=== PATIENT | male | born 1980 | race African-American/Black ===

== ENCOUNTER 2018-05-19 11:56 | Inpatient (IN) | payer OTHER, SELFPAY ==
--- NOTE | 2018-05-19 13:22 | PDOC.FPRHP ---
- History of Present Illness Chief Complaint: "my toe is getting worse" History of Present Illness: 37 yo M with DM2 presents as transfer from [place] for presumed osteomyelitis. Started as a blister on his fourth left toe 3 weeks ago from wearing steel-toe boots. Became red, mildly tender. Saw his PCP Dr. Aquino who gave him a clindamycin course for 7 days in which the patient completed. Symptoms did not improve, toe nail fell off, blister bursted and pus formed prompting him to come in today. In the [place] ED they started him on Vanc & Zosyn - Allergies/Adverse Reactions Allergies Allergy/AdvReac Type Severity Reaction Status Date / Time No Known Allergies Allergy Verified 05/19/18 15:55 - Home Medications Medication Instructions Recorded Confirmed Type Glimepiride [Amaryl] 4 mg PO QAM-WM 05/19/18 05/19/18 History Losartan [Cozaar] 25 mg PO DAILY 05/19/18 05/19/18 History metFORMIN HCl [Metformin HCl] 1,000 mg PO BID 05/19/18 05/19/18 History - History PMHx: DM2, HTN PSHx: Tonsillectomy FHx: DM2, HTN Social: Denies tobacco, drinks 1-2 drinks weekly, denies drug uses - Review of Systems General: denies: fever/chills, weight/appetite/sleep changes, night sweats Eyes: denies: eye pain, vision changes ENT: denies: nasal congestion, rhinorrhea Respiratory: denies: cough, congestion, shortness of breath Cardiovascular: denies: chest pain, palpitation Gastrointestinal: denies: nausea, vomiting, diarrhea, constipation Skin: reports: rashes. denies: lesions Musculoskeletal: reports: pain (minimal at left foot, fourth toe), tenderness, stiffness, swelling Neurological: denies: numbness, syncope, seizure Psychological: denies: anxiety - Vital signs BP: [143/95] HR: [87] RR: [16] Tmax: [98.5] Pox: [98]% on [RA] Wt: [116] - Physical Exam Constitutional: NAD, awake, alert and oriented HEENT: normocephalic and atraumatic, PERRLA, EOMI, conjunctiva clear, no scleral icterus, good dention Neck: supple, FROM, trachea midline Chest: no-tender to palpation Heart: RRR, normal S1/S2, no murmurs/rubs/gallops, no edema Lungs: CTAB, no respiratory distress, good air movement, no wheezing Abdomen: soft, non-tender, bowel sounds present, no masses/distention Musculoskeletal: normal structure, normal tone, ROM grossly normal -Musculoskeletal: left fourth toe: necrosis of tissues, purulence, erythema involving part of left 3rd toe. Edema involving entirety of left foot up to ankle. Pulses palpable. Able to move Neurological: no focal deficit, normal sensation -Neurological: feet: plantar sensation in tact to feet bilaterally Heme/Lymphatic: no unusual bruising or bleeding, no purpura Psychiatric: normal mood and affect, good judgment and insight FMR H&P: Results - Radiology Interpretation Other Status: report reviewed by me Additional comment: foot xray: likely osteomyelitis of proximal 4th digit of left foot FMR H&P: A/P - Problem List (1) Osteomyelitis of toe of left foot Current Visit: Yes Status: Acute Code(s): M86.9 - OSTEOMYELITIS, UNSPECIFIED (2) Diabetes type 2, no ocular involvement Current Visit: Yes Status: Acute Code(s): E11.9 - TYPE 2 DIABETES MELLITUS WITHOUT COMPLICATIONS (3) Hypertension Current Visit: Yes Status: Acute Code(s): I10 - ESSENTIAL (PRIMARY) HYPERTENSION - Plan 37 yo M with DM2 here with presumed osteomyelitis of the proximal phalanx of the 4th toe Presumed osteomyelitis of left toe -Xray shows osseous destruction of proximal phalanx of 4th toe -Vital signs stable, Lactic acid wnl, no signs of systemic infections at this time -Continue Vanc & Zosyn, pending blood & wound cultures -Toradol PRN for pain control -Podiatry has been consulted from ED, plans for surgery tonight DM2 -continue home meds -will ask about recent a1c, can consider obtaining more recent one -mild SS to cover HTN -continue home meds dvt ppx: none, will resume after surgery Discussed with Dr. Sanchez FMR H&P: Upper Level - Pertinent history Very pleasant 37 year old AA male presents as transfer from outside ED with concern for osteomyelitis of 4th toe on left. Patient presented to ED after noticing worsening necrosis and purulent drainage from left 4th toe. Patient states it started as a blister. He wears steel toed boots for work. The blister got worse over the course of 2 weeks. He saw his PCP a week ago and completed a course of antibiotics. Patient states that it initially seemed to get better, but it started to slough and drain purulent discharge. It has turned black. patient denies any pain, but decided to come in for evaluation as the antibiotics did not help. He has also noticed redness to the dorsal aspect of the left foot. He has not spread past the ankle. Patient denies fever, chills, N /V. Patient was transferred over from [place] ED and started on Vanc and Zosyn. Podiatry was consulted from ED. - Pertinent findings General: Patient is alert and oriented x3. No acute distress. HEENT: Moist mucous membranes Cardio: RRR. No murmurs Resp: Lungs clear to auscultation. No acute respiratory distress. MARQUITA: Full ROM throughout. Pedal pulses intact. GI: Soft, non-tender, bowel sounds present in all 4 quadrants Skin: Warmth and erythema extending from dorsal aspect of toes to dorsal aspect of ankle on left. Necrotic left distal fourth toe with purulent drainage proximally. - Plan Date/Time: 05/19/18 1319 I, Shae Aragon, have evaluated this patient and agree with findings/plan as outlined by internet marketing assistant resident. Pertinent changes/additions are listed here. Osteomyelitis of left 4th toe - Left foot xray xray: osseous destruction of distal end of proximal phalanx of fourth toe. Osteomyelitis is presumed given clinical presentation. - ESR not obtained as podiatry was consulted in ED and they have plans for surgery tomorrow - Podiatry consulted in ED. Plan for surgery at noon tomorrow. - NPO at midnight; consistent carb diet in meantime. - Vanc and zosyn (05/19) - LR once NPO - No systemic signs of infection - Toradol PRN pain control HTN - Continue home medications DM type II - Continue home medications - Mild SSI - HgA1c pending - ACHS accuchecks - CC diet DVT ppx: Ambulation Code status: Full Dispo: Admit to hospital on surgical or medical floor. Plan for surgery tomorrow. Attending Addendum - Attending Addendum Date/Time: 05/19/18 7391 I personally evaluated the patient and discussed the management with Dr. Umu Walters/ Margo. I agree with the History, Examination, Assessment and Plan documented above with any addition or exceptions noted below. Patient here with worsening L toe infection. Imaging c/w possible osteomyelitis of the digit, and there is evidence for both wet and dry gangrene when looking at the digit. Patient will be admitted for gangrene and possible osteomyelitis, placed on IV abx. Will be made NPO. Podiatry has been consulted from the ED and will see patient for further recommendations.
[2018-05-19] MEDS ORDERED: Acetaminophen 325 MG TAB PO PRN ×2 (14:08→15:38)
[2018-05-19] MEDS ORDERED: Sodium Chloride 0.9% 1,000 ML IV SCH (15:38)
[2018-05-19] MEDS ORDERED: Ondansetron PF 4 MG/2 ML Vial IVP PRN (15:38)
[2018-05-19] MEDS ORDERED: Ondansetron ODT 4 MG TAB SL PRN (15:38)
[2018-05-19] MEDS ORDERED: Morphine 4 MG/ML VIAL SLOW IVP PRN (15:39)
[2018-05-19] MEDS ORDERED: Lactated Ringer's 1,000 ML IV SCH (15:41)
[2018-05-19] MEDS ORDERED: Dextrose 50% Abboject 50 ML SYRINGE SLOW IVP PRN (15:41)
[2018-05-19] MEDS ORDERED: Dextrose 5% in Water 1,000 ML IV PRN (15:41)
[2018-05-19 15:52] VITALS: BMI 31.9
[2018-05-19] MEDS: Piperacillin/Tazobactam 3.375 GM in Sodium Chloride 0.9% 100 ML IVPB SCH ×2 (16:30→21:05)
[2018-05-19] MEDS: Vancomycin HCl 1.75 GM in Sodium Chloride 0.9% 500 ML IVPB SCH (18:16)
--- NOTE | 2018-05-19 20:34 | RAD ---
RIGHT FOOT TWO VIEWS: 05/19/18 COMPARISON: None. HISTORY: Wounds of the right foot. FINDINGS: There is cortical irregularity involving the mid shaft of the third proximal phalanx suggesting an ag e indeterminate, likely subacute/chronic, fracture. Soft tissue swelling is seen in the region of the fourth toe. Punctate foci of subcutaneous gas suspected on the frontal examination in this region. N o obvious bone destruction. IMPRESSION: Findings suggesting soft tissue swelling of fourth digit with possible punctate subcutaneous gas. No osseous destruction. MRI of the foot could best assess for underlying osteomyelitis. Question age ind eterminate, likely subacute/chronic fracture of third proximal phalanx. POS: [facility]
[2018-05-20] MEDS: Vancomycin HCl 1.75 GM in Sodium Chloride 0.9% 500 ML IVPB SCH ×3 (00:34→17:19)
[2018-05-20 04:40] LABS: #Basophils 0.1 thou/uL (0.0-0.2); #Eosinphils 0.4 thou/uL (0.0-0.7); #Lymphocytes 2.1 thou/uL (1.20-3.40); #Monocytes 0.7 thou/uL (0.11-0.59); #Neutrophils 5.8 thou/uL (1.40-6.50); %Basophils 0.8 % (0.0-1.0); %Eosinophils 4.1 % (0.0-10.0); %Lymphocytes 23.5 % (21.0-51.0); %Monocytes 7.3 % (0.0-10.0); %Neutrophils 64.4 % (42.0-75.0); Hemoglobin 11.8 g/dL (14.0-18.0); Mean Corpuscular HGB CONC 34.8 g/dL (32.0-36.0); Mean Corpuscular Hemoglobin 30.2 pg (27.0-31.0); Mean Corpuscular Volume 86.9 fL (78.0-98.0); Mean Platelet Volume 6.6 fL (7.4-10.4); Platelet Count 512 thou/uL (130-400); Red Blood Cell (RBC) Count 3.91 mill/uL (4.70-6.10)
[2018-05-20 04:56] LABS: Anion Gap 10 mmol/L (10-20); BUN (Urea Nitrogen) 9 mg/dL (8.9-20.6); Calc. Creatinine Clearance 200 mL/min (70-130); Calcium 8.2 mg/dL (7.8-10.44); Carbon Dioxide 27 mmol/L (22-29); Chloride 104 mmol/L (98-107); Estimated GFR-MDRD Greater than 90; Glucose 142 mg/dL (70-105); Potassium 3.6 mmol/L (3.5-5.1); Sodium 137 mmol/L (136-145)
--- NOTE | 2018-05-20 05:33 | PDOC.FM ---
- Subjective Subjective: No acute events overnight. Pt reports feeling well, no pain at left foot. - Objective Vital Signs & Weight: Vital Signs (12 hours) Temp Pulse Resp BP Pulse Ox 05/20/18 05:03 98.4 F 79 18 132/84 97 05/20/18 00:00 98.5 F 71 18 142/85 H 94 L 05/19/18 20:00 96 05/19/18 19:56 97.9 F 78 16 131/80 96 Weight Weight 116 kg I&O: 05/18/18 05/19/18 05/20/18 06:59 06:59 06:59 Intake Total 340 Balance 340 Result Diagrams: 05/20/18 03:50 05/20/18 03:50 Phys Exam - Physical Examination Constitutional: NAD HEENT: moist MMs, sclera anicteric Respiratory: no wheezing, no rales, clear to auscultation bilateral Cardiovascular: RRR, no significant murmur left fourth toe unchanged from yesterday-black necrotic skin, edema of left foot, dorsalis pedis pulse palpable 1+ Neurological: non-focal, moves all 4 limbs Psychiatric: normal affect, A&O x 3 Dx/Plan (1) Osteomyelitis of toe of left foot Code(s): M86.9 - OSTEOMYELITIS, UNSPECIFIED Status: Acute (2) Diabetes type 2, no ocular involvement Code(s): E11.9 - TYPE 2 DIABETES MELLITUS WITHOUT COMPLICATIONS Status: Acute (3) Hypertension Code(s): I10 - ESSENTIAL (PRIMARY) HYPERTENSION Status: Acute - Plan Plan: 37 yo M with DM2 here with presumed osteomyelitis of the proximal phalanx of the 4th toe Presumed osteomyelitis of left toe -Xray shows osseous destruction of proximal phalanx of 4th toe -Vital signs stable, Lactic acid wnl, no signs of systemic infections at this time -Continue Vanc & Zosyn, pending blood & wound cultures -Toradol PRN for pain control -Surgery at noon today, NPO as of midnight DM2 -resume glimepiride -hold metformin in case contrast MRI -pending a1c -mild SS to cover -will start on ASA after surgery -will start on statin HTN -continue home meds dvt ppx: none, will resume after surgery dispo: Pending podiatry recs & wound culture results, can possibly d/c after surgery Discussed with Dr. Macario
[2018-05-20] MEDS: Piperacillin/Tazobactam 3.375 GM in Sodium Chloride 0.9% 100 ML IVPB SCH ×4 (05:45→20:40)
[2018-05-20] MEDS: Losartan 25 MG TAB PO SCH (08:22)
[2018-05-20] MEDS ORDERED: Lidocaine 1% PF 5 ML VIAL ONE (09:38)
[2018-05-20] MEDS ORDERED: Ondansetron PF 4 MG/2 ML Vial ONE (09:38)
[2018-05-20] MEDS ORDERED: PROPOFOL 200 MG/20 ML VIAL ONE (09:38)
[2018-05-20] MEDS ORDERED: Metoclopramide HCl 10 MG/2 ML VIAL ONE (09:38)
[2018-05-20] MEDS ORDERED: Ketorolac Tromethamine 30 MG/ML VIAL ONE (09:38)
[2018-05-20] MEDS ORDERED: Fentanyl 100 MCG/2 ML VIAL ONE (11:46)
--- NOTE | 2018-05-20 11:50 | CON ---
DATE OF CONSULTATION: 05/20/2018 SUBJECTIVE: I was consulted to see the patient when he was in the emergency room, now admitted to room 4437. The patient is resting comfortably. The patient has been on IV antibiotics. The patient states for several weeks, he has had a wound on the left fourth digit. He has received different antibiotics and has been putting iodine solution on the wound as instructed. Increased redness and pain brought him to the emergency room. OBJECTIVE: The patient has erythema on the dorsum of the foot, which has been marked out with a pen. The patient has some swelling of the left foot. The patient has good palpable pulses 2/4 bilaterally dorsalis pedis and posterior tib. The patient has reduced sensation to light touch in bilateral plantar feet. Examination shows dry gangrene in the distal left fourth digit with some early signs of wet gangrene. X-ray examination shows there to be osteomyelitis changes and destruction at the head of the proximal phalanx. Also with examination, the patient has a pre-ulcerative lesion on the plantar aspect of the first metatarsal head and on the left fifth digit proximal interphalangeal joint. Also, noted was a dry ulcer on the dorsal aspect of the right fourth digit. This does not appear infected, but patient reports this to be a longstanding wound. The patient had no white counts on admission. ASSESSMENT AND PLAN: 1. I discussed with the patient his current situation with a bone infection. He is scheduled tomorrow for amputation of left fourth digit. I also verbally consented him to debride the pre-ulcerative lesions. I ordered x-rays of the right foot to rule out osteomyelitis of the right fourth digit. If positive for osteomyelitis, we will discuss with the patient presurgery. If negative, the patient will be instructed on wound care at home. 2. The patient was instructed that he will not be working until this wound has healed. He is to get me the appropriate paperwork. 3. After surgery, the patient will be readmitted for wound care and to evaluate the culture and sensitivity taken in the operating room. Job ID: [id number]
[2018-05-20] MEDS ORDERED: Bupivacaine PF 0.5% 30 ML VIAL ONE ×2 (11:52→12:04)
[2018-05-20] MEDS ORDERED: Neomycin-Polymyxin 1 ML AMP ONE (11:52)
[2018-05-20] MEDS ORDERED: Morphine Sulfate 2 MG/ML SYRINGE SLOW IVP PRN (13:12)
[2018-05-20] MEDS ORDERED: Promethazine HCl 25 MG/ML VIAL SLOW IVP PRN (13:12)
[2018-05-20] MEDS ORDERED: Promethazine HCl 25 MG/ML VIAL IM PRN (13:12)
[2018-05-20] MEDS ORDERED: Ondansetron HCl/PF 4 MG/2 ML Vial IVP PRN (13:12)
[2018-05-20] MEDS ORDERED: PACU-Morphine 4MG/ML VIAL SLOW IVP PRN (13:12)
[2018-05-20] MEDS ORDERED: Meperidine HCl/PF 25 MG/ML VIAL SLOW IVP PRN (13:12)
[2018-05-20] MEDS ORDERED: HYDROmorphone 2 MG/ML VIAL SLOW IVP PRN (13:12)
[2018-05-20] MEDS: Ketorolac Tromethamine 30 MG/ML VIAL IVP PRN (16:21)
[2018-05-20] MEDS: HumaLOG 300 UNITS/3 ML VIAL SC PRN (17:26)
[2018-05-20] MEDS ORDERED: Atorvastatin Calcium 40 MG TAB PO SCH (21:00)
[2018-05-20] MEDS ORDERED: Simvastatin 20 MG TAB PO SCH (21:00)
[2018-05-21] MEDS: Vancomycin HCl 1.75 GM in Sodium Chloride 0.9% 500 ML IVPB SCH ×2 (00:08→10:03)
[2018-05-21] MEDS: Ketorolac Tromethamine 30 MG/ML VIAL IVP PRN ×2 (00:11→11:54)
[2018-05-21] MEDS: Piperacillin/Tazobactam 3.375 GM in Sodium Chloride 0.9% 100 ML IVPB SCH ×3 (05:31→15:49)
[2018-05-21] MEDS: HumaLOG 300 UNITS/3 ML VIAL SC PRN (05:33)
--- NOTE | 2018-05-21 05:52 | PDOC.FM ---
- Subjective Subjective: S/P surgery day 1. No complaints-denies pain, fever. Eating well. - Objective Vital Signs & Weight: Vital Signs (12 hours) Temp Pulse Resp BP Pulse Ox 05/21/18 04:00 98.4 F 78 16 128/81 97 05/21/18 00:00 98.8 F 86 16 135/74 95 Weight Weight 116 kg I&O: 05/19/18 05/20/18 05/21/18 06:59 06:59 06:59 Intake Total 1967 1133 Balance 1967 1133 Result Diagrams: 05/21/18 08:03 05/21/18 08:03 Phys Exam - Physical Examination Constitutional: NAD HEENT: PERRLA, moist MMs, sclera anicteric Neck: full ROM Gastrointestinal: soft, non-tender Musculoskeletal: no edema, pulses present left foot bandaged wrapped in foot immobilizer. Neurological: non-focal, moves all 4 limbs Psychiatric: normal affect, A&O x 3 Skin: no rash, cap refill <2 seconds Dx/Plan (1) Osteomyelitis of toe of left foot Code(s): M86.9 - OSTEOMYELITIS, UNSPECIFIED Status: Acute (2) Diabetes type 2, no ocular involvement Code(s): E11.9 - TYPE 2 DIABETES MELLITUS WITHOUT COMPLICATIONS Status: Acute (3) Hypertension Code(s): I10 - ESSENTIAL (PRIMARY) HYPERTENSION Status: Acute - Plan Plan: 37 yo M with DM2 here with presumed osteomyelitis of the proximal phalanx of the 4th toe Osteomyelitis of left digit -s/p operative procedure with Dr. Palumbo -Wound culture (05/19) positive for pseudomonas & beta hemolytic strep -No systemic signs of infection, continuing vanc & zosyn, Dr. Hicks consulted, appreciate recs -Toradol PRN for pain control, tylenol PRN fever -Wound care on board, outpt appt scheduled for 05/28 DM2, uncontrolled -A1c 8 -Glucose at goal -Statin, ASA, metformin, glimepride -mild SS to cover HTN -stable -continue home meds dvt ppx: lovenox dispo: Once transitioned to oral abx, and wound care sees patient. Can potentially d/c Discussed with Dr. Macario
[2018-05-21] MEDS ORDERED: Glimepiride 4 MG TAB PO SCH (08:00)
[2018-05-21 08:44] LABS: #Basophils 0.1 thou/uL (0.0-0.2); #Eosinphils 0.4 thou/uL (0.0-0.7); #Lymphocytes 1.7 thou/uL (1.20-3.40); #Monocytes 0.5 thou/uL (0.11-0.59); #Neutrophils 5.8 thou/uL (1.40-6.50); %Basophils 0.7 % (0.0-1.0); %Eosinophils 4.4 % (0.0-10.0); %Lymphocytes 20.2 % (21.0-51.0); %Neutrophils 68.7 % (42.0-75.0); Hemoglobin 11.6 g/dL (14.0-18.0); Mean Corpuscular HGB CONC 34.9 g/dL (32.0-36.0); Mean Corpuscular Hemoglobin 30.3 pg (27.0-31.0); Mean Corpuscular Volume 86.7 fL (78.0-98.0); Mean Platelet Volume 6.4 fL (7.4-10.4); Platelet Count 455 thou/uL (130-400); RBC Distribution Width 10.8 % (11.5-14.5); Red Blood Cell (RBC) Count 3.85 mill/uL (4.70-6.10); White Blood Cell (WBC) Count 8.5 thou/uL (4.8-10.8)
[2018-05-21] MEDS: Losartan 25 MG TAB PO SCH (08:51)
[2018-05-21] MEDS: metFORMIN 500 MG TAB PO SCH ×2 (08:51→17:35)
--- NOTE | 2018-05-21 08:58 | PRG ---
DATE OF SERVICE: 05/20/2018 ADDENDUM: This is an addendum to the note of Dr. Judy Walters. Mr. Grissom is a very pleasant 37-year-old black male patient with approximately 20-year history of type 2 diabetes. He presented with a diabetic foot infection and possible osteomyelitis. This is occurring on his fourth left toe and began with the blister 3 weeks ago. He presented to a local ER and was subsequently transferred here for higher level of care. He has already been seen in consultation by the Podiatry Service and has been taken for amputation. We will continue to follow with the Surgical Service, manage antibiotics and manage his type 2 diabetes. Job ID: [id number]
[2018-05-21 08:59] LABS: Vancomycin, Trough 19.6 ug/mL
[2018-05-21] MEDS ORDERED: Enoxaparin Sodium 40 MG/0.4 ML SYRINGE SC SCH (09:00)
[2018-05-21] MEDS ORDERED: Aspirin 81 mg Enteric Coated Tablet PO SCH (09:00)
[2018-05-21 09:12] LABS: Anion Gap 10 mmol/L (10-20); BUN (Urea Nitrogen) 11 mg/dL (8.9-20.6); Calc. Creatinine Clearance 195 mL/min (70-130); Calcium 8.5 mg/dL (7.8-10.44); Carbon Dioxide 27 mmol/L (22-29); Chloride 105 mmol/L (98-107); Estimated GFR-MDRD Greater than 90; Glucose 140 mg/dL (70-105); Potassium 3.7 mmol/L (3.5-5.1); Sodium 138 mmol/L (136-145)
--- NOTE | 2018-05-21 10:50 | OP ---
DATE OF PROCEDURE: 05/20/2018 PREOPERATIVE DIAGNOSIS: Osteomyelitis, 4th digit proximal phalanx. POSTOPERATIVE DIAGNOSIS: Osteomyelitis, 4th digit proximal phalanx. PROCEDURE PERFORMED: Amputation, left 4th digit and distal 1st metatarsal. ANESTHESIA: General with a field block, totally 8 mL of 0.5% plain Marcaine. ESTIMATED BLOOD LOSS: 100 mL. DESCRIPTION OF PROCEDURE: The patient was taken to the operating room, placed on the operating room table in the supine position. After general anesthesia was achieved, an 8 mL of 0.5% plain Marcaine was injected in a field block. The left lower extremity was then scrubbed and draped in the usual surgical manner. A well-padded pneumatic ankle tourniquet was placed above the medial and lateral malleolus prior to draping. Attention was directed to the 4th digit, the digit was clamped with atraumatic towel clamp and manipulated. A fish-mouth incision was made at the base of the proximal phalanx. At this time, it was noted that the ulcer tracked proximally to the metatarsophalangeal joint. The digit was incised at the proximal phalanx with power saw and re-evaluated. The necrotic type tissue was present at the metatarsophalangeal joint, therefore the distal metatarsal head was transected with the power saw and removed. Using a rongeur, all necrotic tissues were evaluated and removed. The extensor tendon and flexor tendon were clamped and retracted distally and sharply transected with a clean blade proximally. The digit was passed off to the back table. After the procedure under sterile technique, bone cultures were taken. Copious lavage of irrigant to the wound was performed. Partial closure with 3-0 nylon suture was performed and the distal wound was packed with 1/4 inch iodoform dressing. Sterile fluff dressing applied. The patient tolerated the anesthesia and procedure well. The patient was readmitted to the hospital for IV antibiotic therapy and consult from Dr. Hicks for possible outpatient antibiotic therapy. Hand Stapler to figure out outpatient wound care. The patient will be re-examined tomorrow in-house. Job ID: [id number]
[2018-05-21 12:10] VITALS: TEMP 98.4
--- NOTE | 2018-05-21 13:33 | PRG ---
DATE OF SERVICE: 05/21/2018 ADDENDUM: To the note of Dr. Judy Walters. Mr. Grissom had surgery yesterday, and this morning, he is sitting in bed, resting comfortably. He is in no acute distress. We are continuing to follow and manage his type 2 diabetes and attempting to keep his blood glucose level between 140 and 180. We will continue to follow with the Podiatry Surgery service. Job ID: [id number]
[2018-05-21 16:16] VITALS: BP 126/72
--- NOTE | 2018-05-21 22:26 | CON ---
DATE OF CONSULTATION: 05/21/2018 REASON FOR CONSULTATION: Osteomyelitis of right 4th toe. HISTORY OF PRESENT ILLNESS: A 37-year-old with history of type 2 diabetes and neuropathy as well as hypertension, who developed a blister in the 4th toe after wearing steel toe boots and was treated in the outpatient setting with clindamycin with persistence of symptoms. The patient was admitted and had an x-ray that did not show any osteolysis. The patient ended up with an amputation of the 4th toe , including the distal 4th metatarsal bone. There was necrotic tissue at the metatarsophalangeal joint and the pathology is pending at this time. The patient denies any headaches, visual symptoms, sore throat, odynophagia, or dysphagia. No vascular symptoms. No abdominal pain. Voiding without any difficulty. No diarrhea. No bleeding. Minimal pain in the affected extremity. PAST MEDICAL HISTORY: Type 2 diabetes, hypertension, neuropathy. ALLERGIES: NONE. SOCIAL HISTORY: Never smoker, drinks occasionally. FAMILY HISTORY: Type 2 diabetes and hypertension. CURRENT MEDICATIONS: 1. Aspirin. 2. Lipitor. 3. Amaryl. 4. Zosyn. 5. Vancomycin. PHYSICAL EXAMINATION: VITAL SIGNS: Temperature max 98.5. Other vital signs are not remarkable. SKIN: The original findings with necrosis over the distal end of the 4th digit with gangrene and swelling over the remainder aspect of the 4th toe. No lymphadenopathy. HEENT: Noncontributory. NECK: Supple. LUNGS: Symmetrical with clear breath sounds. HEART: S1, S2 regular rate. No S3 or S4. ABDOMEN: Soft, nondistended, nontender. No ascites. No bladder distention. No other joint inflammatory process. Popliteal pulses 1+. DP pulses 1+. ASSESSMENT: Type 2 diabetes with gangrene over the distal aspect of left 4th toe, status post amputation of the toe and the distal ray. DISCUSSION: The patient appears to have adequate vascular supply and waiting on pathology report to make sure that the margins are clear. The organisms include Pseudomonas aeruginosa, which has a broad susceptibility profile and group B strep. Conceivably, he could be discharged on oral ciprofloxacin plus Augmentin or amoxicillin, and I would treat him for 3 to 4 weeks. If the margins are compromised, then I would extend therapy to 6 weeks and may be treated him with IV antimicrobial therapy if that was the case. Job ID: [id number] [facility]
--- NOTE | 2018-05-21 23:48 | PRG ---
DATE OF SERVICE: 05/21/2018 SUBJECTIVE FINDINGS: On postop day#1, the patient is in bed resting comfortably. The patient has no complaints. The patient is growing out a gram-negative michelle and Staph aureus. The patient has reduced swelling of the foot. I have discussed with Dr. Walters his prognosis. When he gets trained on bandage changes, he can be discharged to home. I have discussed with Dr. Hicks outpatient antibiotics and he will be put on Cipro and Augmentin. He will follow up with me in 1 week in the office and he is seeing Wound Care on . Job ID: [id number]
--- NOTE | 2018-05-22 17:42 | DIS ---
DATE OF ADMISSION: 05/19/2018 DATE OF DISCHARGE: 05/21/2018 ADMITTING ATTENDING: Tanya Hernandez MD. DISCHARGE ATTENDING: Rajinder Chávez MD CONSULTS: 1. Podiatry, Dr. Palumbo. 2. Dr. Hicks. PRIMARY DIAGNOSIS: Left fourth digit osteomyelitis. SECONDARY DIAGNOSES: 1. Type 2 diabetes uncontrolled. 2. Hypertension. DISCHARGE MEDICATIONS: DICTATION ENDS HERE Job ID: [id number]
--- NOTE | 2018-05-22 17:51 | DIS ---
DATE OF ADMISSION: 05/19/2018 DATE OF DISCHARGE: 05/21/2018 ADMITTING ATTENDING: Tanya Hernandez MD DISCHARGE ATTENDING: Rajinder Chávez MD RESIDENT: Judy Walters MD, PGY-1 CONSULTS: 1. Podiatry, Dr. Palumbo, on 05/19. 2. Dr. Hicks, on 05/20. 3. Wound Care on 05/20/2018. PRIMARY DIAGNOSIS: Left 4th toe osteomyelitis, status post debridement and amputation. SECONDARY DIAGNOSES: 1. Uncontrolled diabetes mellitus 2. 2. Hypertension. 3. HLD DISCHARGE MEDICATIONS: 1. Aspirin 81 mg p.o. daily. 2. Atorvastatin 40 mg p.o. nightly. 3. Metformin 1000 mg p.o. b.i.d. 4. Glimepiride 4 mg p.o. q.a.m. with meal. 5. Losartan 25 mg p.o. daily. 6. Augmentin 875 mg p.o. q.12 hours. 7. Ciprofloxacin 500 mg p.o. b.i.d. DISCONTINUED MEDICATIONS: None. PROCEDURES: Amputation of left 4th digit and distal first metatarsal by Dr. Palumbo. HISTORY OF PRESENT ILLNESS AND HOSPITAL COURSE: Mr. Grissom is a 37-year-old type 2 diabetic, who presented as a transfer for presumed osteomyelitis as evidenced per foot x-ray. The patient was admitted and started on empiric antibiotics of Vanc and Zosyn. Dr. Palumbo was consulted and the patient underwent amputation of left 4th digit and first metatarsal. Hospital course was uncomplicated and the patient recovered well with work up for systemic infection involvement all negative. Wound cultures of the left 4th toe fluid were positive for Pseudomonas and Strep agalactiae. With Dr. Hicks ' recommendations patient was transitioned to po abx. Despite the patient's young age he had been diabetic for 15+ years diagnosed at the age of 13. Contributing factors to developing osteomyelitis was from trauma from wearing steel toe boots and diabetic peripheral neuropathy. In addition patient's A1c was 8. Uncontrolled DM2 likely contributed to poor wound healing. No further workup for PAD was conducted as the patient did not exhibit any clinical signs for this as discussed between Dr. Palumbo and our team. Also discussed with the patient why we started him on a statin and aspirin due to his uncontrolled diabetes. He was instructed to follow up with his PCP for further discussion about this since he was taken off of them. Overall, the patient recovered well and expressed he is all ready to go home upon discharge. DISPOSITION: Stable. DISCHARGE INSTRUCTIONS: 1. Location: Home. 2. Diet: Renal diet, heart healthy. 3. Activity: Ad-krys. 4. Followup: Please follow up with PCP Dr. Williamson within the week. Please also follow up with Wound Care for outpatient appointment on 05/28/2018. Job ID: [id number] [facility]
== END 2018-05-21 18:36 | disposition home or self-care (01) | DRG 256 ==
LOC: ERS 11:56 → ERHOLD 13:46 → T4-B 14:52
PROVIDERS: ADMIT Family Medicine; ATTEND Family Medicine
PROC: 0Y6Q0Z3 Detachment at Left 1st Toe, Low, Open Approach (ICD-10-PCS; principal; 2018-05-20)
PROC: 0Y6W0Z1 Detachment at Left 4th Toe, High, Open Approach (ICD-10-PCS; 2018-05-20)
DX: E13.52 Other specified diabetes mellitus with diabetic peripheral angiopathy with gangrene (principal); I96 Gangrene, not elsewhere classified; M86.8X7 Other osteomyelitis, ankle and foot; I10 Essential (primary) hypertension; E11.65 Type 2 diabetes mellitus with hyperglycemia; E78.00 Pure hypercholesterolemia, unspecified; E13.42 Other specified diabetes mellitus with diabetic polyneuropathy
CPT/HCPCS: 36415; 36416; 80048; 80202; 83036; 85025; 87070; 87076; 87077; 87186; 87205; 88305; 88311; 99285; J1650; J1885; J2001; J2405; J2543; J2704; J2765; J3010; J3370; J7050; S0020

== ENCOUNTER 2018-05-28 07:57 | Outpatient (CLI) | payer SELFPAY ==
--- NOTE | 2018-05-28 13:08 | HP ---
HISTORY OF PRESENT ILLNESS: Mr. Thompson Grissom is a very pleasant 38-year-old gentleman, who presents [facility] for evaluation of a wound of the left foot subsequent to amputation of the left fourth digit and distal fourth metatarsal on 05/20/[address] Palumbo. Upon discharge from [facility], the patient was referred to the Wound Center for further evaluation and treatment. The patient states he was discharged to home on Augmentin and ciprofloxacin. PAST MEDICAL HISTORY: 1. Hypertension. 2. Diabetes mellitus. PAST SURGICAL HISTORY: 1. Tonsillectomy. 2. Amputation of left fourth digit and distal fourth metatarsal on 05/20/[address] Palumbo. MEDICATIONS: 1. Aspirin 81 mg. 2. Metformin. 3. Amaryl. 4. Cozaar. 5. Augmentin. 6. Ciprofloxacin. ALLERGIES: NO KNOWN DIAGNOSED ALLERGIES. SOCIAL HISTORY: Social history is significant for tobacco use of one pack of cigarettes per day for five years. The patient states that he stopped smoking years ago. The patient admits to the social consumption of alcohol. FAMILY HISTORY: Family history is significant for diabetes mellitus. The patient states that his mother and father were both diagnosed with diabetes mellitus. Family history is also significant for coronary artery disease. The patient states that his mother and father were both diagnosed with coronary artery disease. PHYSICAL EXAMINATION: VITAL SIGNS: Temperature 98.2, pulse 81, respirations 18, and blood pressure 159/99. GENERAL: A 38-year-old gentleman, sitting on chair in examination room, in no acute distress. HEENT: Normocephalic and atraumatic. NECK: No nuchal rigidity. CHEST: Clear to auscultation. CV: Regular rate and rhythm. ABDOMEN: Soft. EXTREMITIES: A wound of the left foot is present subsequent to amputation of the left fourth digit and distal fourth metatarsal. The dimensions of the wound are approximately 1.9 x 1.2 cm. Granulation tissue is present within the wound margins. No purulent drainage is associated with the wound. No erythema of the skin surrounding the wound is present. No maceration of the skin of the periwound is noted. A dorsalis pedis pulse is palpable on the left. No significant edema of the left foot is present on exam today. The depth of the wound is approximately 2.3 cm. NEUROLOGIC: Grossly nonfocal. ASSESSMENT AND PLAN: 1. Left foot wound subsequent to amputation of left fourth digit and distal fourth metatarsal. Dressing changes of one-quarter inch gauze packing will be continued as per Dr. Palumbo. The patient states that he will be seen by Dr. Palumbo in one week. I will see Mr. Grissom again in two weeks. The patient has been reminded to continue Augmentin and ciprofloxacin as previously prescribed. 2. Hypertension. 3. Diabetes mellitus. Accu-Cheks will be obtained at the time of the patient's clinic visits. The patient has been told that for optimal wound healing, his blood glucoses should remain below 150. Job ID: [id number]
== END 2018-05-28 07:58 | disposition home or self-care (01) ==
LOC: WCC 07:57
PROVIDERS: ATTEND Family Medicine
DX: T81.89XD Other complications of procedures, not elsewhere classified, subsequent encounter (principal); I10 Essential (primary) hypertension; E11.9 Type 2 diabetes mellitus without complications

== ENCOUNTER 2018-06-11 07:57 | Outpatient (CLI) | payer OTHER, SELFPAY ==
--- NOTE | 2018-06-11 10:16 | PRG ---
DATE OF SERVICE: 06/11/2018 HISTORY: Mr. Thompson Grissom is a very pleasant 38-year-old gentleman, who presents to the [facility] for evaluation of a wound of the left foot subsequent to amputation of the left fourth digit and distal fourth metatarsal on 05/20/[address] Palumbo. Upon discharge from [facility], the patient was referred to the Wound Center for further evaluation and treatment. The patient previously stated he was discharged to home on Augmentin and ciprofloxacin. Mr. Grissom has no complaints today. He denies any fever or chills. PHYSICAL EXAMINATION: VITAL SIGNS: Temperature 98.2, pulse 94, respirations 16, blood pressure 161/95. Accu-Chek 202. EXTREMITIES: A wound of the left foot is present subsequent to amputation of the left fourth digit and distal fourth metatarsal. The dimensions of the wound are approximately 0.5 x 0.5 cm. The depth of the wound is approximately 2.8 cm. Granulation tissue is present within the wound margins. No purulent drainage is associated with the wound. No erythema of the skin surrounding the wound is present. No maceration of the skin of the periwound is noted. A dorsalis pedis pulse is palpable on the left. No significant edema of the left foot is present on exam today. ASSESSMENT AND PLAN: 1. Left foot wound subsequent to amputation of left fourth digit and distal fourth metatarsal. Dressing changes of 1/4 inch gauze packing will be continued as per Dr. Palumbo. The patient states that he will be seen by Dr. Palumbo in one week. I will see Mr. Grissom again in 3 weeks. 2. Hypertension. 3. Diabetes mellitus. The patient's Accu-Chek in clinic today is 202. The patient has been reminded that for optimal wound healing, his blood glucoses should remain below 150. Job ID: [id number]
[2018-06-11] MEDS ORDERED: Sodium Chloride 0.9% 15 ML NEB ONE (15:00)
== END 2018-06-11 07:58 | disposition home or self-care (01) ==
LOC: WCC 07:57
PROVIDERS: ATTEND Family Medicine
DX: E11.621 Type 2 diabetes mellitus with foot ulcer (principal); L97.529 Non-pressure chronic ulcer of other part of left foot with unspecified severity; I10 Essential (primary) hypertension; Z89.422 Acquired absence of other left toe(s)
CPT/HCPCS: 36416; 97602; A4218

== ENCOUNTER 2024-06-08 09:56 | Day surgery (SDC) | payer OTHER ==
[2024-06-07 14:00] VITALS: BMI 33.3
[~2024-06-08 09:56] MED LIST: EPINEPHrine 0.3 MG in Ophthalmic Irrigation Solution 500 ML IRR SCH
[2024-06-08] MEDS ORDERED: Cyclopentolate 1% Opth Drop 2 ML BOT ONE (10:35)
[2024-06-08] MEDS ORDERED: PHENYLephrine 2.5% Ophth Soln 15 ml Bottle ONE (10:35)
[2024-06-08] MEDS ORDERED: Midazolam HCl 2 mg/2 ml Vial ONE (11:02)
[2024-06-08] MEDS ORDERED: fentaNYL 50 mcg/mL 1 mL Vial ONE (11:02)
[2024-06-08] MEDS ORDERED: PROPOFOL 20 ML ONE (11:02)
[2024-06-08] MEDS ORDERED: Bupivacaine 0.75% 10 ML VIAL ONE (11:45)
[2024-06-08] MEDS ORDERED: Lidocaine 4% PF 5 ML AMP ONE (11:45)
[2024-06-08] MEDS ORDERED: CEFAZOLIN 1 GM VIAL ONE (11:45)
[2024-06-08] MEDS ORDERED: Maxitrol 0.1% Opth Oint 3.5 GM TUBE ONE (11:45)
[2024-06-08] MEDS ORDERED: Lidocaine 1% PF 5 ML VIAL ONE (11:45)
[2024-06-08] MEDS ORDERED: Triamcinolone 40 MG/ML VIAL ONE (11:45)
== END 2024-06-08 14:50 | disposition home or self-care (01) ==
LOC: SDC 09:56
PROVIDERS: ATTEND Ophthalmology Retina Specialist
PROC: 08T53ZZ Resection of Left Vitreous, Percutaneous Approach (ICD-10-PCS; principal; 2024-06-08)
DX: E11.3522 Type 2 diabetes mellitus with proliferative diabetic retinopathy with traction retinal detachment involving the macula, left eye (principal)
CPT/HCPCS: C1814; J0171; J2250; J2704; J3010